=== PATIENT | female | born 1970 | race Caucasian/White ===

== ENCOUNTER 2020-06-15 11:14 | Outpatient (CLI) | payer OTHER, SELFPAY ==
--- NOTE | 2020-06-15 | ECG_ITS ---
Measurements Intervals [place] Rate: 63 P: 60 [place]: 152 QRS: 44 QRSD: 85 T: 72 QT: 410 QTc: 421 Interpretive Statements SINUS RHYTHM POSSIBLE LEFT ATRIAL ENLARGEMENT CANNOT RULE OUT SEPTAL INFARCT, AGE INDETERMINATE BORDERLINE ST-T WAVE ABNORMALITY- ANTEROLAT/HIGH LAT LEADS ABNORMAL ECG Electronically Signed On 06-15-2020 16:14:45 CDT by Ladarius Garces D.O.
--- NOTE | ~2020-06-15 | XR_ITS ---
EXAMINATION: XR_CERV2-3V_CR DATE: 06/15/2020 11:44 INDICATION: Right-sided numbness. Anesthesia of skin. Neck pain. TECHNIQUE: 3 views of cervical spine were obtained. COMPARISON: None. FINDINGS: There is 5 degrees dextrocurvature of cervicothoracic spine. There is 2 mm retrolisthesis o f C5 on C6. There is kyphosis of upper cervical spine. Vertebral body heights are normal. There is mi ldly decreased disc height at C4-C5 and severely decreased disc height at C5-C6. At C5-C6, there is s evere bilateral uncovertebral joint osteoarthritis. There is multilevel mild facet joint osteoarthrit is. There is mild central canal stenosis at C5-C6 and C6-C7. No prevertebral soft tissue swelling. IMPRESSION: 1. Severe cervical spondylosis. Reviewed, dictated and finalized at location A.
--- NOTE | ~2020-06-15 | CT_ITS ---
EXAMINATION: CT brain wo con DATE: 06/15/2020 11:41 INDICATION: Left facial droop. Right body heaviness for one week TECHNIQUE: Computed tomography (CT) of the head was performed without intravenous contrast. The mA wa s adjusted according to patient size. Iterative reconstruction technique was employed. Exam dose: 60 5.33 mGy-cm total exam DLP. COMPARISON: None FINDINGS: There is evidence of recent or subacute infarct in the region of the posterior limb of the left internal capsule. Approximately 8 x 11 mm left periventricular chronic lacunar infarct. Chronic left basal ganglia lacunar infarct. There is some asymmetric diminished attenuation in the region of the anterior limb of the right inter nal capsule. Consider MRI imaging for further evaluation. There are bilateral carotid siphon internal carotid artery calcifications. Dominant left vertebral ar jason calcification. There is nonspecific diminished attenuation of the cerebral white matter, likely due to chronic small vessel ischemic changes. No intracranial hemorrhage is detected. No intracranial mass lesion is evident on this limited noncontrast examination. No midline shift or m ass effect. Ventricular size is normal. No subdural or epidural hematoma is detected. The included mastoid air cells and paranasal sinuses are normally developed and aerated. No fracture or bone destruction of the cranial vault. IMPRESSION: Recent or subacute infarct is suggested in the region of the posterior limb of the left internal capsule Chronic periventricular and left basal ganglia lacunar infarcts Nonspecific changes of the cerebral white matter, mild asymmetry in the region of the anterior limb o f the right internal capsule. Consider MRI imaging for further evaluation Cerebral atherosclerosis No acute intracranial hemorrhage Reviewed, dictated and finalized at Location A. Reviewed, dictated and finalized at location B. IMPRESSION: Recent or subacute infarct is suggested in the region of the poste rior limb of the left internal capsule Chronic periventricular and left basal ganglia lacunar infarcts Nonspecific changes of the cerebral white matter, mild asymmetry in the region of the anterior limb of the right internal capsule. Consider MRI imaging for fu rther evaluation Cerebral atherosclerosis No acute intracranial hemorrhage
[2020-06-15 12:03] LABS: Basophils Percent Auto 0.4 % (0.2-1.2); Eosinophils Percent Auto 0.6 % (0-4.4); Hemoglobin 15.8 g/dL (12.0-15.0); Immature Granulocyte Absolute 0.01 K/mm3 (0.00-0.031); Immature Granulocyte Percent A 0.1 % (0-0.5); Lymphocytes Percent Auto 22.3 % (18.3-44.2); Mean Corpuscular HGB Conc 33.6 g/dl (32-36); Mean Corpuscular Hemoglobin 31.9 pg (26-34); Mean Corpuscular Volume 94.9 fl (80-100); Mean Platelet Volume 8.8 fl (7.4-10.4); Monocytes Absolute Auto 0.5 K/mm3 (0.1-0.6); Monocytes Percent Auto 7.3 % (2.6-8.5); Neutrophils Percent Auto 69.3 % (45.5-73.1); Platelet Count Result 264 k/mm3 (150-375); Red Blood Count 4.95 M/mm3 (4.2-5.4); Red Cell Distribution Width 11.8 % (11.5-14.5); White Blood Count 7.2 K/mm3 (4.5-10.0)
[2020-06-15 12:13] LABS: Blood Urea Nitrogen 18 mg/dL (7-17); Calcium 9.5 mg/dL (8.4-10.2); Carbon Dioxide 29 mmol/L (22-30); Chloride 101 mmol/L (98-107); Estimated Glomerular Filt Rate > 60; Glucose 117 mg/dL (65-105); Magnesium 2.2 mg/dL (1.6-2.3); Potassium 4.7 mmol/L (3.4-5.0); Sodium 136 mmol/L (137-145)
== END 2020-06-15 11:15 | disposition home or self-care (01) ==
PROVIDERS: PCP Family Medicine; Visit Provider Nurse Practitioner Family
DX: R20.0 Anesthesia of skin (principal); R20.2 Paresthesia of skin; R53.1 Weakness; I10 Essential (primary) hypertension; R29.810 Facial weakness
CPT/HCPCS: 36415; 70450; 72040; 80048; 82607; 83735; 84443; 85025; 93005

== ENCOUNTER 2020-07-01 09:45 | Outpatient (CLI) | payer OTHER, SELFPAY ==
--- NOTE | ~2020-07-01 | MR_ITS ---
EXAMINATION: MR brain/brain stem wo con DATE: 07/01/2020 11:15 INDICATION: Cerebral infarction with right arm heaviness and weird feeling at the right leg. TECHNIQUE: Magnetic resonance imaging (MRI) of the brain and brainstem was performed without intraven ous contrast. Sequences included sagittal and axial T1-weighted SE, axial diffusion-weighted FS SE, a xial T2*-weighted GRE, axial T2-weighted FLAIR, and axial T2-weighted FSE. Apparent diffusion coeffic ient (ADC) maps were created. COMPARISON: Head CT dated 06/15/2020 FINDINGS: Small region of restricted diffusion at the lateral left thalamus along side the posterior limb of th e internal capsule. The region of decreased attenuation noted on prior CT at the posterior limb of th e left internal capsule demonstrates encephalomalacia consistent with chronic lacunar infarct. There are few additional small foci of encephalomalacia consistent with old lacunar infarcts in the periven tricular white matter in the left and right frontal lobes adjacent to the anterior horns of the later al ventricles and in the posterior left frontal lobe. Additional tiny old lacunar infarcts in the atul ateral thalami and in the left cerebellum. No intracranial hemorrhage or abnormal intracranial mass l esion. There are scattered areas of nonspecific increased T2-weighted signal intensity in the cerebra l white matter, predominantly involving the deep and periventricular white matter. There are no intra parenchymal signal abnormalities seen on the other pulse sequences. The ventricles are symmetric and normal in size. There are no abnormal extra-axial fluid collections. Aside from the right vertebral a rtery there are flow voids seen in the cerebral arteries on the T2-weighted sequences consistent with their expected patency. The left vertebral artery is of comparable size to the internal carotid ree kendrick in the right vertebral artery is not visualized suggesting it is either diminutive or developmen tally absent. Mild mucoperiosteal thickening the bilateral ethmoid sinuses. Visualized orbits and sof t tissues are unremarkable. There are no areas of abnormal enhancement on the post contrast images. IMPRESSION: 1. Restricted diffusion consistent with acute infarct in the left thalamus along side the posterior l imb of the left internal capsule. 2. Multiple additional old lacunar infarcts in the bilateral frontal lobes, bilateral thalami, left i nternal capsule and left cerebellar hemisphere. 3. Nonvisualized likely either diminutive or developmentally absent right vertebral artery. Reviewed, dictated and finalized at location A. IMPRESSION: 1. Restricted diffusion consistent with acute infarct in the left thalamus nicol g side the posterior limb of the left internal capsule. 2. Multiple additional old lacunar infarcts in the bilateral frontal lobes, atul ateral thalami, left internal capsule and left cerebellar hemisphere. 3. Nonvisualized likely either diminutive or developmentally absent right verte bral artery.
== END 2020-07-01 09:46 | disposition home or self-care (01) ==
PROVIDERS: PCP Family Medicine; Visit Provider Nurse Practitioner Family
DX: I63.9 Cerebral infarction, unspecified (principal)
CPT/HCPCS: 70551

== ENCOUNTER 2020-07-30 09:44 | Outpatient (CLI) | payer OTHER, SELFPAY ==
--- NOTE | ~2020-07-30 | US_ITS ---
EXAMINATION: US carotid duplex BI DATE: 07/30/2020 11:36 INDICATION: Cerebral infarction. Cerebral atherosclerosis. TECHNIQUE: Grayscale, color Doppler, and pulsed Doppler images of the cervical carotid arteries were obtained. The degree of vessel stenosis is placed in one of the following categories: normal, <50%, 5 0-69%, >=70% but less than near-occlusion, near-occlusion, or total occlusion. Note that percent sten osis relative to normal distal artery lumen diameter is indirectly measured from velocity measurement s as described by Phil, et al. Radiology 2003; 229:340-346. COMPARISON: None. FINDINGS: RIGHT: The right common carotid artery (CCA) peak systolic velocity (PSV) is 87 cm/s. The right internal car otid artery (ICA) PSV is 57 cm/s. The right ICA end-diastolic velocity (EDV) is 21 cm/s. The right IC A/CCA PSV ratio is 0.6. Grayscale and color Doppler images yield an estimate of <50% diameter reducti on from plaque in the ICA. The external carotid artery (ECA) PSV is 104 cm/s. There is antegrade flow in the right vertebral artery. LEFT: The left CCA PSV is 90 cm/s. The left ICA PSV is 77 cm/s. The left ICA EDV is 27 cm/s. The left ICA/C CA PSV ratio is 0.8. Grayscale and color Doppler images yield an estimate of <50% diameter reduction from plaque in the ICA. The ECA PSV is 62 cm/s. There is antegrade flow in the left vertebral artery. IMPRESSION: 1. <50% stenosis in the right internal carotid artery. 2. <50% stenosis in the left internal carotid artery. Reviewed, dictated and finalized at location B.
--- NOTE | 2020-07-30 09:48 | ECHO_ITS ---
Patient Info Name: Abena Garcia Age: 49 years : 1970 Gender: Female Ht: 66 in Wt: 135 lbs BSA: 1.69 m2 HR: 67 bpm BP: 158 / 85 mmHg Technical Quality: Good Exam Date: 07/30/2020 9:54 AM Exam Location: [facility] Patient Status: Outpatient Admit Date: 07/30/2020 Staff Ordering Physician: Claudia Voss NP Underwater Hunter Trapper: Yosef Molina RDCS, RT Attending Provider: Claudia Voss NP Referring Physician: Shanika MARTÍNEZ; Exam Type: CA echo doppler color flow Study Info Indications I63.219 - Cerebral infarction due to unspecified occlusion or stenosis of unspecified vertebral arteries Complete two-dimensional, color flow and Doppler transthoracic echocardiogram is performed. Summary 1. Complete two-dimensional, color flow and Doppler transthoracic echocardiogram is performed. 2. Left ventricular chamber dimension is normal. 3. Left ventricular systolic function is normal, estimated at 65-70%. 4. There is mildly increased left ventricular wall thickness. 5. The left ventricular diastolic function is normal. 6. E/e' 9 is minimally elevated. 7. Global longitudinal strain is normal at -19.6%. 8. There is mild tricuspid valve regurgitation. 9. No pulmonary hypertension, estimated pulmonary arterial systolic pressure is 30 mmHg. Left Ventricle E/e' 9 is minimally elevated. Global longitudinal strain is normal at -19.6%. Left ventricular chamber dimension is normal. Left ventricular systolic function is normal, estimated at 65-70%. There is mildly increased left ventricular wall thickness. The left ventricular diastolic function is normal. Right Ventricle Right ventricular systolic function is normal with TAPSE at 1.9 cm.. Right ventricular chamber dimension is normal. Left Atria Left atrial chamber dimension is normal. Right Atria Right atrial chamber dimension is normal. Aortic Valve The aortic valve is trileaflet. There is no aortic valve stenosis. There is no aortic valve regurgitation. Pulmonic Valve There is no pulmonic regurgitation. Mitral Valve There is no mitral valve stenosis. There is no mitral valve regurgitation. Tricuspid Valve There is mild tricuspid valve regurgitation. No pulmonary hypertension, estimated pulmonary arterial systolic pressure is 30 mmHg. Pericardium/Pleural There is no pericardial effusion. Inferior Vena Cava Normal inferior vena cava with >50% collapse upon inspiration consistent with normal right atrial pressure, 5 mmHg. Aorta The aortic root size at the sinus of Valsalva is normal. Left Ventricular Outflow Tract Name Value Normal LVOT 2D LVOT Diameter 2.0 cm LVOT Doppler LVOT Peak Gradient 4 mmHg LVOT Mean Gradient 2 mmHg LVOT VTI 26 cm LVOT VTI/AV VTI Ratio 0.8 LVOT Stroke Volume 77 ml LVOT CO 5.1 l/min LVOT CI 3.0 l/min/m2 Mitral Valve
== END 2020-07-30 09:45 | disposition home or self-care (01) ==
PROVIDERS: PCP Family Medicine; Visit Provider Nurse Practitioner Family
DX: I63.9 Cerebral infarction, unspecified (principal); I65.23 Occlusion and stenosis of bilateral carotid arteries
CPT/HCPCS: 93306; 93880

== ENCOUNTER 2020-09-09 09:24 | Outpatient (CLI) | payer OTHER, SELFPAY ==
--- NOTE | ~2020-09-09 | NM_ITS ---
EXAMINATION: NM yannick stress w perfusion DATE: 09/09/2020 14:06 INDICATION: Abnormal electrocardiogram. Ventricular tachycardia. TECHNIQUE: Rest images were obtained following intravenous administration of 9.8 mCi Tc99m tetrofosmi n (Myoview). The patient was infused intravenously with Lexiscan (regadenoson). Then, 26.7 mCi Tc99m tetrofosmin (Myoview) was administered intravenously, and stress images were obtained. Data was recon structed into short axis and horizontal and vertical long axis SPECT images. Gated SPECT images were also obtained. COMPARISON: None. FINDINGS: There is no definite reversible or fixed perfusion abnormality to suggest ischemia or infar ction. There is no segmental wall motion abnormality. Left ventricular ejection fraction measures > 70%. IMPRESSION: 1. No definite ischemia or infarct. 2. Normal left ventricular ejection fraction measuring >70%. Reviewed, dictated and finalized at location A.
--- NOTE | 2020-09-09 10:43 | EST_ITS ---
Patient Info Name: Abena Garcia Age: 49 years : 1970 Gender: Female Ht: 66 in Wt: 130 lbs BSA: 1.66 m2 Exam Date: 09/09/2020 10:56 AM Exam Location: [facility] Stress Patient Status: Outpatient Admit Date: 09/09/2020 Staff Ordering Physician: Ladarius Garces DO Attending Provider: Ladarius Garces DO Exercise Technologist: Yosef Molina RDCS, RT Exam Type: CA stress yannick w NM Study Info A regadenoson stress test was performed. Summary 1. 1. Negative lexiscan stress test for ischemic ST changes by ECG criteria. 2. 2. Baseline hypertension. 3. 3. Nuclear scan to follow and will be reported separately. Please correlate with it. 4. 4. Patient informed of the above results. Protocol: Lexiscan Stress ECG Details Stage: REST Duration (min): 8 min : 4 sec HR (bpm): 60 SBP (mmHg): 145 DBP (mmHg): 84 Stage: STAGE 1 Duration (min): 0 min : 59 sec HR (bpm): 72 SBP (mmHg): 143 DBP (mmHg): 84 Stage: RECOVERY Duration (min): 1 min : 0 sec HR (bpm): 90 SBP (mmHg): 143 DBP (mmHg): 84 Stage: RECOVERY Duration (min): 2 min : 0 sec HR (bpm): 81 SBP (mmHg): 143 DBP (mmHg): 84 Stage: RECOVERY Duration (min): 3 min : 0 sec HR (bpm): 81 SBP (mmHg): 133 DBP (mmHg): 77 Stage: RECOVERY Duration (min): 4 min : 0 sec HR (bpm): --- SBP (mmHg): 133 DBP (mmHg): 77 Stage: RECOVERY Duration (min): 4 min : 10 sec HR (bpm): --- SBP (mmHg): 133 DBP (mmHg): 77 Rest HR: 60 bpm Peak HR: 91 bpm Rest Sys BP: 145 mmHg Peak Sys BP: 143 mmHg Max Pred HR: 169 bpm % Max Pred HR: 54 % Target HR: 144 bpm Max RPP: 13,013 bpm*mmHg Termination Reason: Completed protocol Cardiac Symptoms: Shortness of breath Total Time: 1 min : 0 sec Rest Thapa BP: 84 mmHg Peak Thapa BP: 84 mmHg Total Dose: 0.4 mg Resting ECG Sinus rhythm. Stress ECG No ST changes. Arrhythmias None. Report Signatures
== END 2020-09-09 09:25 | disposition home or self-care (01) ==
PROVIDERS: PCP Family Medicine; Visit Provider Internal Medicine Cardiovascular Disease
DX: I47.2 Ventricular tachycardia (principal)
CPT/HCPCS: 78452; 93017; A9502; J2785

== ENCOUNTER 2022-12-13 00:30 | Day surgery (SDC) | payer OTHER, SELFPAY ==
[2022-12-01 14:01] VITALS: BMI 20.9
[2022-12-01 14:23] VITALS: BMI 20.9
[2022-12-13 07:43] VITALS: BP 139/73; PULSE 69; RESP 18; TEMP 36.4; O2SAT 100; BMI 20.2
[2022-12-13] MEDS: LACTATED RINGERS 1,000 ML 150 ML IV CONT (07:46)
--- NOTE | 2022-12-13 08:04 | WPDANESEPPF ---
Anes - Initial Pre Proc Eval Procedure: Operation Date: 12/13/22 08:45 Proposed Procedures p Screening Colonoscopy - Mark Cole MD Date/Time: 12/13/22 08:04 Surgeon: Mark Cole MD Pre Op Diagnosis: neoplasm screening Patient Data Age: 52 Gender: F Height: 1.68 m Weight: 57.1 kg Last Vital Signs Temp 97.5 F L 12/13/22 07:43 Pulse 69 12/13/22 07:43 Resp 18 12/13/22 07:43 BP 139/73 12/13/22 07:43 Pulse Ox 100 12/13/22 07:43 O2 Del Method Room Air 12/13/22 07:43 Allergies Allergy/AdvReac Type Severity Reaction Status Date / Time No Known Allergies Allergy Verified 12/13/22 07:40 Home Medications Medication Instructions Recorded Confirmed Type aspirin 81 mg tablet,delayed 81 mg PO DAILY #30 tabs 06/15/20 12/13/22 Rx release (Adult Low Dose Aspirin) buprenorphine 8 mg-naloxone 2 mg 1 tablet sublingual DAILY #1 tablet 06/15/20 12/13/22 Rx sublingual tablet clonidine HCl 0.1 mg tablet 0.1 mg PO DAILY #1 tablet 06/15/20 12/13/22 Rx lisdexamfetamine 70 mg capsule 70 mg PO DAILY #1 cap 06/15/20 12/13/22 Rx (Vyvanse) amlodipine 5 mg tablet 5 mg PO DAILY #30 tabs 04/11/22 12/13/22 Rx metoprolol succinate 25 mg See Rx Instructions .Route 09/29/22 12/01/22 Rx tablet,extended release 24 hr .COMPLEX #30 tabs rosuvastatin 20 mg tablet (Crestor) 20 mg PO DAILY #90 tabs 10/27/22 12/13/22 Rx Patient hx anesthesia problems: none Family hx anesthesia problems: none Results Review: All pre-operative results and documents have been reviewed as part of the pre-operative evaluation. [facility] Past Medical History Medical History BMI 20.0-20.9, adult Family History Family History Father Mother No problems noted. Sibling No problems noted. Other Cerebrovascular accident Family history of coronary artery disease Hypertension Social History Social History Smoking packs per day: 1 Smoking cigarettes per day: 20.0 Years smoked: 10 Smoking pack-years: 10.00 Smoking status: Current some day smoker Tobacco type: cigarettes Second hand tobacco smoke exposure: Yes Alcohol intake: never Substance use: never Substance use type: does not use Lack of Transportation: No Concerned About Future Housing: No Difficulty Paying Gas/Electric Bills: No Difficulty Paying for Meds: No Currently Unemployed: No Difficulty w/ Childcare or Family Care: No Living arrangements: with family Additional occupation/education comments: Auto glass Gender identity (if verbalized by the patient): Female Spiritual care concerns: No Anes - Eval Final PreProcedure Day of Procedure 12/13/22 08:04 Patient weight: normal Heart: regular rate and rhythm Lungs: clear to auscultation Airway: Mallampati scale class II Neurological: alert and oriented Last oral intake: >/= 8 hours ASA classification: III Emergent: no Anesthetic plan: proceed Anesthesia type and monitoring: general GIVS and standard monitoring Results Review: All pre-operative results and documents have been reviewed as part of the pre-operative evaluation. Informed Consent: The patient's anesthetic plan and its attendant risks and benefits were discussed with the patient/family/POA. Questions were solicited and answers provided to the satisfaction of the patient/family/POA.
--- NOTE | 2022-12-13 08:37 | PM.HPGS ---
History of Present Illness History of Present Illness Consent: Risks, benefits, and alternatives have been discussed and questions answered. Patient agrees to proceed with procedure. Chief complaint: neoplasm screening Narrative: Abena Garcia is a 52 year old female here for first screening colonoscopy Review of Systems Constitutional: Constitutional: Denies headache(s) and Denies weakness Eyes: Eyes: Denies blurry vision ENT: Reports Normal hearing present, Denies headache(s) and Denies neck pain Cardiovascular: Cardiovascular: Denies chest pain and Denies dyspnea Respiratory: Respiratory: Denies dyspnea Gastrointestinal: Gastrointestinal: Reports no additional gastrointestinal complaints Genitourinary: Genitourinary: Denies dysuria Musculoskeletal: Musculoskeletal: Denies neck pain Integumentary/Breasts: Skin/Breast: Denies dry skin Neurologic: Reports Normal hearing present, Denies headache(s) and Denies weakness Psychiatric: Psychiatric: Denies anxiety Endocrine: Endocrine: Denies change in body appearance Hematologic/Lymphatic: Hematologic/Lymphatic: Denies easy bleeding Allergic/Immunologic: Allergic/Immunologic: Denies urticaria PMFSH Past Medical History Medical History BMI 20.0-20.9, adult Family History Family History Father Mother No problems noted. Sibling No problems noted. Other Cerebrovascular accident Family history of coronary artery disease Hypertension Social History Social History Smoking packs per day: 1 Smoking cigarettes per day: 20.0 Years smoked: 10 Smoking pack-years: 10.00 Smoking status: Current some day smoker Tobacco type: cigarettes Second hand tobacco smoke exposure: Yes Alcohol intake: never Substance use: never Substance use type: does not use Lack of Transportation: No Concerned About Future Housing: No Difficulty Paying Gas/Electric Bills: No Difficulty Paying for Meds: No Currently Unemployed: No Difficulty w/ Childcare or Family Care: No Living arrangements: with family Additional occupation/education comments: Auto glass Gender identity (if verbalized by the patient): Female Spiritual care concerns: No Meds Home Medications and Allergies Home Medications Medication Instructions Recorded Confirmed Type aspirin 81 mg tablet,delayed 81 mg PO DAILY #30 tabs 06/15/20 12/13/22 Rx release (Adult Low Dose Aspirin) buprenorphine 8 mg-naloxone 2 mg 1 tablet sublingual DAILY #1 tablet 06/15/20 12/13/22 Rx sublingual tablet clonidine HCl 0.1 mg tablet 0.1 mg PO DAILY #1 tablet 06/15/20 12/13/22 Rx lisdexamfetamine 70 mg capsule 70 mg PO DAILY #1 cap 06/15/20 12/13/22 Rx (Vyvanse) amlodipine 5 mg tablet 5 mg PO DAILY #30 tabs 04/11/22 12/13/22 Rx metoprolol succinate 25 mg See Rx Instructions .Route 09/29/22 12/01/22 Rx tablet,extended release 24 hr .COMPLEX #30 tabs rosuvastatin 20 mg tablet (Crestor) 20 mg PO DAILY #90 tabs 10/27/22 12/13/22 Rx Allergies Allergy/AdvReac Type Severity Reaction Status Date / Time No Known Allergies Allergy Verified 12/13/22 07:40 Vital Signs Vital Signs - 24 hr 12/13/22 07:43 Temperature 97.5 F L Pulse Rate 69 Respiratory Rate 18 Blood Pressure 139/73 Pulse Oximetry 100 Oxygen Delivery Room Air Exam Const: General: comfortable and no acute distress HENMT: Face/Nose/Sinus: Normal nares present Eyes: General: appearance normal, both eyes and all related structures Neck: Neck: no JVD Resp: Auscultation: clear to auscultation bilaterally Cardio: Rate: regular rate Rhythm: regular rhythm GI: Inspection: non-distended GI Palp: Yes Soft to palpation Skin: General skin exam: normal color Neuro: General: gait normal Speech: normal spee
[2022-12-13 08:57] VITALS: BP 109/59; PULSE 55; RESP 17; O2SAT 99
[2022-12-13 09:07] VITALS: BP 124/62; PULSE 53; RESP 19; O2SAT 98
[2022-12-13 09:17] VITALS: BP 140/68; PULSE 50; RESP 19; O2SAT 97
--- NOTE | 2022-12-13 11:26 | SUR.PREOP ---
order was placed for u preg but pt is post menopausal so this was not done.
== END 2022-12-13 09:33 | disposition home or self-care (01) ==
PROVIDERS: PCP Family Medicine; Visit Provider Internal Medicine Gastroenterology
PROC: 0DJD8ZZ Inspection of Lower Intestinal Tract, Via Natural or Artificial Opening Endoscopic (ICD-10-PCS; CPT 45378; principal; 2022-12-13 08:45)
DX: Z12.11 Encounter for screening for malignant neoplasm of colon (principal); K57.30 Diverticulosis of large intestine without perforation or abscess without bleeding; K63.5 Polyp of colon; F17.210 Nicotine dependence, cigarettes, uncomplicated; Z79.82 Long term (current) use of aspirin
CPT/HCPCS: 45385; 88305; J2704; J7120